=== PATIENT | female | born 1955 | race Caucasian/White ===

== ENCOUNTER → 2016-09-28 | Outpatient (CLI) | payer BC, OTHER ==
--- NOTE | 2016-09-28 15:34 | KCIC ---
PROCEDURE Limited abdominal ultrasound. HISTORY Abnormal liver function tests. TECHNIQUE Real-time ultrasound imaging of the right upper quadrant of the abdomen is performed. COMPARISON None. FINDINGS The liver measures 16.2 cm in length and is normal in echotexture. There is mild heterogeneity. Ultrasound is not sensitive for detection of focal hepatic lesions. Portal flow is hepatopetal. The pancreas is homogeneous in appearance and no focal enlargement is seen. The gallbladder appears normal and no gallstones or gallbladder wall thickening is seen. No pericholecystic fluid is seen. No positive Castaneda's sign was elicited during transducer examination of the gallbladder. No extrahepatic biliary ductal dilatation is seen and the extrahepatic bile duct measures 4 mm. The right kidney measures 11.5 cm in length and no hydronephrosis or renal mass or perinephric fluid collection is seen. No focal aneurysmal dilatation of the abdominal aorta is seen. The IVC is unremarkable. No ascites is seen. IMPRESSION Mildly heterogeneous hepatic parenchyma. Ultrasound not sensitive for detection of focal hepatic lesions. As clinically warranted, liver could be more definitively evaluated with MRI with and without contrast. Electronically signed by: Ray Castro MD (Sep 28, 2016 15:33:27)
== END | disposition home or self-care (01) ==
LOC: KCIC US 09:36
PROVIDERS: ATTEND Family Medicine
DX: K76.89 Other specified diseases of liver (principal)
CPT/HCPCS: 76705

== ENCOUNTER → 2017-12-11 | Outpatient (CLI) | payer OTHER | END | disposition home or self-care (01) | LOC: RAD 11:10 | DX: M54.42 Lumbago with sciatica, left side (principal); M43.16 Spondylolisthesis, lumbar region; M47.896 Other spondylosis, lumbar region; Y92.410 Unspecified street and highway as the place of occurrence of the external cause | CPT/HCPCS: 72110 ==

== ENCOUNTER → 2018-03-18 | Outpatient (CLI) | payer BC, OTHER ==
--- NOTE | 2018-03-18 17:26 | RAD ---
EXAM: AP and lateral views of the cervical spine DATE: 03/18/2018 11:02 AM INDICATION: neck pain COMPARISON: No Prior FINDINGS: The cervical spine is imaged from the skull base through C7. Vertebral body heights are preserved. Mild C6-7 and C5-6 intervertebral disc height loss. Small anterior endplate osteophytes are seen. Moderate facet degenerative changes are seen at multiple levels. There is 1 mm anterolisthesis of C4 on C5. Mild straightening of the normal cervical lordosis. No spondylolisthesis. Normal predental space. No significant prevertebral soft tissue swelling. IMPRESSION: 1. No evidence for acute fracture 2. Trace anterolisthesis of C4 on C5 3. Multilevel spondylosis as above. Electronically signed by: Daniel Brock MD (03/18/2018 5:22 PM) [facility]
--- NOTE | 2018-03-18 17:28 | RAD ---
EXAM: AP and lateral views soft tissue neck DATE: 03/18/2018 11:04 AM INDICATION: mass posterior left side of neck/ mass anterior right neck COMPARISON: No Prior FINDINGS: Views of the neck with soft tissue detail are negative for prevertebral soft tissue swelling or gas collection. The epiglottis is delicate and the aeryepiglottic folds are not thickened. Visualized airway is patent. Negative definite retained radiopaque foreign body at the visualized airway or cervical esophagus. IMPRESSION: 1. Normal views of the soft tissue neck without findings for retained radiopaque foreign body or epiglottitis. Consider further evaluation with contrast-enhanced CT or MRI for the evaluation of soft tissue mass. Electronically signed by: Daniel Brock MD (03/18/2018 5:24 PM) [facility]
== END | disposition home or self-care (01) ==
LOC: RAD 10:40
PROVIDERS: ATTEND Family Medicine
DX: M47.892 Other spondylosis, cervical region (principal); M25.78 Osteophyte, vertebrae; R22.1 Localized swelling, mass and lump, neck
CPT/HCPCS: 70360; 72040

== ENCOUNTER → 2019-03-19 | Outpatient (CLI) | payer BC, OTHER ==
--- NOTE | 2019-03-19 13:56 | KCIC ---
Bilateral digital screening mammograms with 3-D tomosynthesis: Reason for examination: Routine screening. New baseline. Bilateral mammograms in CC and oblique projections were obtained with 2-D imaging and 3-D tomosynthesis imaging on a Siemens Inspiration unit and reviewed on the workstation. Interpretation was made with the benefit of CAD. The skin and nipples show no abnormalities. No abnormal axillary lymph nodes are seen. The breast parenchyma shows scattered fatty and fibroglandular density. (Breast density: Category B.) There are no dominant masses, suspicious calcifications or architectural distortion. Impression: No evidence of malignancy. Recommend routine screening. BI-RAD Category 1: Negative. "Our facility is accredited by the [employer] Mammography Program." This patient's information has been entered into a reminder system for the patient to be notified with the results of her examination and a target date for the next mammogram. Electronically signed by: Eli Fragoso MD (03/19/2019 1:53 PM) [id number]
== END | disposition home or self-care (01) ==
LOC: KCIC MAMMO 12:03
PROVIDERS: ATTEND Family Medicine
DX: Z12.31 Encounter for screening mammogram for malignant neoplasm of breast (principal)
CPT/HCPCS: 77063; 77067